=== PATIENT | female | born 1955 | race Two or more races ===

== ENCOUNTER 2022-10-10 14:32 | Inpatient (IN) | payer OTHER ==
[~2022-10-10] VITALS: Ht 154.9 cm; Wt 31.8 kg
--- NOTE | 2022-10-10 14:44 | NUR ---
FAMILIAR REFIERE QUE AMOR MADRE ESTA CON DEBILIDAD Y TIENE LA HEMOGLOBINA EN 7. SE UBICA PTE EN NEREIDA Y SE PRESENTA AL DR SETHI.
--- NOTE | 2022-10-10 16:09 | NUR ---
PTE EVALUADA POR EL DR SETHI QUIEN ORDENA EL [place]. SE ORIENTA SOBRE EL [place] ORDENADO, LO CUAL PTE Y FAMILIARES REFIEREN ENTENDER. AL MOMENTO SE OBSERVA PTE LETARGICA. SE REALIZAN MUESTRAS DE LABORATORIO Y SE ADMINISTRA MEDICAMENTO CADEN ORDEN MEDICA Y SIGUIENDO MEDIDAS ASEPTICAS. SE COLOCA CANULA NASAL A 4L/MIN, CADEN ORDEN MEDICA DE DR SETHI. SE CONECTA A MONITOR CARDIACO Y OXIMETRIA DE PULSO PORTATIL, AL MOMENTO PULSO 89 LAT/MIN, SATURANDO 100%.
--- NOTE | 2022-10-10 17:09 | NUR ---
MS [employer] STONE REQUISA PRBC PARA 2U DE PRBC Y LLEVA TUBOS PILOTOS AL LABORATORIO. FAMILIAR DE PTE (ESPOSO) FIRMA DNI + DNR, SE MANTIENE PTE BAJO OBSERVACION.
--- NOTE | 2022-10-10 17:18 | NUR ---
500PM SE LLAMA A [facility] Y SE HABLA CON ANTWAN SOBRE SI PTE TIENE RECORD PREVIO, EL REFIERE QUE PTE NO TIENE RECORD PREVIO. SE LE COLECTA TUBOS PILOTOS Y TERCER TUBO CADEN ORDEN MEDICA UTILIZANDO MEDIDAS ASEPTICAS. SE ENVIAN A LABORATORIO.
[2022-10-11] MEDS ORDERED: FOLIC ACID1 MG (10:22)
[2022-10-11] MEDS ORDERED: VITAMIN D3250 MCG (10:22)
[2022-10-11] MEDS ORDERED: SYNTHROID100 MCG (10:22)
[2022-10-11] MEDS ORDERED: FAMOTIDINE40 MG (10:22)
[2022-10-11] MEDS ORDERED: NIFEDIPINE ER30 M1 (10:22)
[2022-10-11] MEDS ORDERED: LORAZEPAM0.5 MG (10:22)
[2022-10-11] MEDS ORDERED: ESTAZOLAM2 MG (10:22)
[2022-10-11] MEDS ORDERED: SERTRALINE HCL50 MG (10:22)
[2022-10-11] MEDS ORDERED: PANTOPRAZOLE SO40 MG (10:22)
[2022-10-11] MEDS ORDERED: ATORVASTATIN CA20 MG (10:23)
[2022-10-11] MEDS ORDERED: ELIQUIS5 MG (10:23)
[2022-10-11] MEDS ORDERED: SUCRALFATE1 GM/10 ML (10:23)
[2022-10-11] MEDS ORDERED: ANTACID200 MG (10:23)
[2022-10-11] MEDS ORDERED: LOSARTAN POTAS100 MG (10:23)
[2022-10-11] MEDS ORDERED: FLONASE16 GM (10:23)
[2022-10-11] MEDS ORDERED: CALCITRIOL0.5 MCG (10:23)
[2022-10-11] MEDS ORDERED: HYDROCHLOROTHIA25 MG (10:23)
== END 2022-10-15 22:20 | disposition expired | DRG 181 ==
LOC: ER 14:32 → MEDI 18:00 → SURG 18:00 → MEDI 18:21
PROVIDERS: ADMIT Internal Medicine; ATTEND Internal Medicine
PROC: 30233N1 Transfusion of Nonautologous Red Blood Cells into Peripheral Vein, Percutaneous Approach (ICD-10-PCS; principal; 2022-10-10)
PROC: 02HV33Z Insertion of Infusion Device into Superior Vena Cava, Percutaneous Approach (ICD-10-PCS; 2022-10-13)
DX: C34.91 Malignant neoplasm of unspecified part of right bronchus or lung (principal); E87.0 Hyperosmolality and hypernatremia; N17.9 Acute kidney failure, unspecified; R64 Cachexia; R13.19 Other dysphagia; D63.0 Anemia in neoplastic disease; D72.825 Bandemia; C73 Malignant neoplasm of thyroid gland; E86.0 Dehydration; I12.9 Hypertensive chronic kidney disease with stage 1 through stage 4 chronic kidney disease, or unspecified chronic kidney disease; N18.9 Chronic kidney disease, unspecified; Z74.01 Bed confinement status; Z20.822 Contact with and (suspected) exposure to COVID-19